=== PATIENT | female | born 1935 | race Caucasian/White ===

== ENCOUNTER → 2017-01-20 | Outpatient (CLI) | payer OTHER ==
[2015-11-26 11:30] VITALS: BP 137/69
[~2017-01-20] MED LIST: AMIO200T2 PO; AMLO5TAB2 PO; ASCO10002 PO; GLIM4TAB2 PO; LOSA50TA6 PO; METO100T11 PO; MULT1TAB52 PO; SITA100T PO
[2017-01-20 09:09] LABS: ALBUMIN 3.6 g/dL (3.4-5.0); DIRECT BILIRUBIN 0.1 mg/dL (0.0-0.2); TOTAL BILIRUBIN 0.4 mg/dL (0.2-1.0); TOTAL PROTEIN 7.2 g/dL (6.4-8.2)
== END | disposition home or self-care (01) ==
LOC: LAB 07:51
PROVIDERS: ATTEND Internal Medicine Cardiovascular Disease
DX: Z79.899 Other long term (current) drug therapy (principal)
CPT/HCPCS: 36415; 80076; 84443

== ENCOUNTER → 2017-06-18 | Outpatient (CLI) | payer OTHER ==
[2015-11-26 11:30] VITALS: BP 137/69
[~2017-06-18] MED LIST changes: +METO-247 PO; -METO100T11 PO
--- NOTE | 2017-06-18 09:19 | RAD ---
2 views of the Chest 06/18/2017 2:00 AM Indication: Atrial fibrillation Comparison: Chest July 07, 2016 Findings: Calcified granuloma in the left lung base stable. No pneumothorax or pleural effusion is identified. No acute focal infiltrate is seen. Heart size is normal. Aortic calcification is grossly similar. Degenerative changes of the thoracic spine again noted. Anterior angulation of the sternum similar. Impression: Stable appearance of the chest without evidence of acute cardiopulmonary process.
[2017-06-18 10:04] LABS: ALBUMIN 3.5 g/dL (3.4-5.0); DIRECT BILIRUBIN 0.1 mg/dL (0.0-0.2); TOTAL BILIRUBIN 0.4 mg/dL (0.2-1.0); TOTAL PROTEIN 7.2 g/dL (6.4-8.2)
[2017-06-18 14:19] LABS: FREE T4 1.21 ng/dL (0.76-1.46); THYROID STIM HORMONE (TSH) 3.599 uIU/mL (0.358-3.740)
== END | disposition home or self-care (01) ==
LOC: LAB 08:16
PROVIDERS: ATTEND Internal Medicine Cardiovascular Disease
DX: I48.0 Paroxysmal atrial fibrillation (principal); J84.10 Pulmonary fibrosis, unspecified; I70.0 Atherosclerosis of aorta; M47.894 Other spondylosis, thoracic region
CPT/HCPCS: 36415; 71020; 80076; 84439; 84443

== ENCOUNTER → 2017-12-11 | Outpatient (CLI) | payer OTHER ==
[2015-11-26 11:30] VITALS: BP 137/69
--- NOTE | 2017-12-11 08:52 | RAD ---
Chest, 2 views, 12/11/2017: History: Cough, amiodarone therapy Comparison is made to a study from 06/18/2017. The heart size and pulmonary vascularity are normal. There is calcific plaquing of the aorta. There is a calcified granuloma in the left base. No pulmonary infiltrate is seen. There is no evidence of pleural fluid. Moderate hypertrophic spurring is present in the spine. IMPRESSION: No acute cardiopulmonary abnormality is detected.
[2017-12-11 09:31] LABS: ALT (SGPT) 18 U/L (14-59); AST (SGOT) 17 U/L (15-37)
[2017-12-11 14:41] LABS: FREE T4 1.16 ng/dL (0.76-1.46); THYROID STIM HORMONE (TSH) 4.882 uIU/mL (0.358-3.740)
== END | disposition home or self-care (01) ==
LOC: DXRAD 08:11
PROVIDERS: ATTEND Internal Medicine Cardiovascular Disease
DX: Z51.81 Encounter for therapeutic drug level monitoring (principal); J84.10 Pulmonary fibrosis, unspecified; Z79.899 Other long term (current) drug therapy
CPT/HCPCS: 36415; 71046; 84439; 84443; 84450; 84460